=== PATIENT | female | born 1995 | race African-American/Black ===

== ENCOUNTER 2016-12-03 23:34 | Emergency (ER) | payer BC ==
[~2016-12-03] VITALS: Ht 162.6 cm; Wt 69.0 kg
[~2016-12-03 23:34] MED LIST: MACROBID 100 M100 M1 PO
[2016-12-04 01:35] VITALS: BP 110/74
== END 2016-12-04 01:37 | disposition home or self-care (01) ==
LOC: ER 23:34
DX: S05.10XA Contusion of eyeball and orbital tissues, unspecified eye, initial encounter (principal); S60.222A Contusion of left hand, initial encounter; S60.221A Contusion of right hand, initial encounter; S09.90XA Unspecified injury of head, initial encounter; Y04.2XXA Assault by strike against or bumped into by another person, initial encounter; Y93.39 Activity, other involving climbing, rappelling and jumping off; Y92.89 Other specified places as the place of occurrence of the external cause; Y99.9 Unspecified external cause status

== ENCOUNTER 2018-01-15 21:08 | Emergency (ER) | payer OTHER ==
[~2018-01-15] VITALS: Ht 162.6 cm; Wt 68.0 kg
[2018-01-15 22:13] LABS: ABSOLUTE NEUTROPHILS 2.6 thou/uL (1.4-8.2); BASOPHILS 0.4 % (0.0-2.0); EOSINOPHILS 2.5 % (0.0-3.0); HEMATOCRIT 39.5 % (37.0-47.0); HEMOGLOBIN 13.6 gm/dL (12.0-15.0); LYMPHOCYTES 42.1 % (24.0-44.0); MCH 33.2 pg (26.0-34.0); MCHC 34.3 g/dL (28.0-37.0); MCV 96.8 fL (80.0-100.0); MONOCYTES 7.4 % (1.0-8.0); PLATELET COUNT 156 thou/uL (150-400); POLYS 47.6 % (36.0-66.0); RBC 4.09 mil/uL (4.20-5.00); RDW 12.9 % (10.5-14.5); WBC 5.4 thou/uL (4.0-11.0)
[2018-01-15 22:16] LABS: URINE BILIRUBIN NEGATIVE (Negative); URINE BLOOD 2+ (Negative); URINE CLARITY SL CLOUDY; URINE COLOR YELLOW; URINE GLUCOSE-RANDOM* NEGATIVE (Negative); URINE KETONES NEGATIVE (Negative); URINE LEUKOCYTES 2+ (Negative); URINE NITRITE POSITIVE (Negative); URINE PROTEIN (DIPSTICK) TRACE (Negative); URINE SPECIFIC GRAVITY 1.025 (1.005-1.035)
[2018-01-15 22:20] LABS: CALCIUM 8.5 mg/dL (8.5-10.1); CREATININE 1.2 mg/dL (0.6-1.0); POTASSIUM 3.4 mmol/L (3.5-5.1)
[2018-01-15 22:25] LABS: BACTERIA >30 Many /HPF (None Seen); CASTS None Seen /LPF (None Seen); CRYSTALS None Seen /LPF (None Seen); SQUAMOUS 0-3 Few /LPF (0-3); URINE RBC 3-10 Few /HPF (0-2)
[2018-01-15] MEDS ORDERED: NORCO 5-325 TA1 EACH PO (23:00)
[2018-01-15] MEDS ORDERED: MACROBID 100 M100 M1 PO (23:00)
[2018-01-15 23:56] VITALS: BP 125/70
== END 2018-01-15 23:58 | disposition home or self-care (01) ==
LOC: ER 21:08
PROVIDERS: Emergency Medicine
DX: N20.0 Calculus of kidney (principal); N39.0 Urinary tract infection, site not specified; Z87.442 Personal history of urinary calculi

== ENCOUNTER 2018-03-26 18:29 | Emergency (ER) | payer OTHER ==
[~2018-03-26] VITALS: Ht 162.6 cm; Wt 70.3 kg
[~2018-03-26 18:29] MED LIST changes: +NORCO 5-325 TA1 EACH PO
[2018-03-26 18:58] LABS: URINE BILIRUBIN NEGATIVE (Negative); URINE BLOOD 1+ (Negative); URINE CLARITY CLEAR; URINE COLOR YELLOW; URINE GLUCOSE-RANDOM* NEGATIVE (Negative); URINE KETONES NEGATIVE (Negative); URINE NITRITE-REFLEX NEGATIVE (Negative); URINE PROTEIN (DIPSTICK) NEGATIVE (Negative); URINE SPECIFIC GRAVITY >= 1.030 (1.005-1.035)
[2018-03-26 19:00] LABS: URINE LEUKOCYTES-REFLEX 1+ (Negative)
[2018-03-26 19:13] LABS: BACTERIA-REFLEX 1-9 Few /HPF (None Seen); CASTS None Seen /LPF (None Seen); CRYSTALS None Seen /LPF (None Seen); MUCUS >6 Heavy strn/LPF (None Seen); SQUAMOUS >10 Many /LPF (0-3); URINE RBC 3-10 Few /HPF (0-2); URINE WBC-REFLEX >25 Many /HPF (0-5); WBC CLUMPS Few (None Seen)
[2018-03-26] MEDS ORDERED: DIFLUCAN150 MG PO (19:31)
[2018-03-26 19:54] VITALS: BP 100/57
[2018-03-27 14:12] LABS: NEISSERIA GONORRHEA-PCR Positive (Negative)
== END 2018-03-26 19:55 | disposition home or self-care (01) ==
LOC: ER 18:29
PROVIDERS: Physician Assistant
DX: A56.02 Chlamydial vulvovaginitis (principal); B37.3 Candidiasis of vulva and vagina; Z87.442 Personal history of urinary calculi

== ENCOUNTER 2018-09-19 19:10 | Emergency (ER) | payer OTHER ==
[~2018-09-19] VITALS: Ht 162.6 cm; Wt 72.6 kg
[~2018-09-19 19:10] MED LIST changes: +DIFLUCAN150 MG PO
[2018-09-19 19:15] VITALS: BP 111/68
[2018-09-19 19:32] LABS: URINE CLARITY CLEAR; URINE COLOR YELLOW; URINE SPECIFIC GRAVITY 1.025 (1.005-1.035)
[2018-09-19 19:33] LABS: URINE BILIRUBIN NEGATIVE (Negative); URINE BLOOD 3+ (Negative); URINE GLUCOSE-RANDOM* NEGATIVE (Negative); URINE KETONES NEGATIVE (Negative); URINE LEUKOCYTES-REFLEX NEGATIVE (Negative); URINE NITRITE-REFLEX NEGATIVE (Negative); URINE PROTEIN (DIPSTICK) NEGATIVE (Negative); URINE UROBILINOGEN 0.2 E.U./dl (0.2-1.0)
[2018-09-19 19:40] LABS: BACTERIA-REFLEX None Seen /HPF (None Seen); CASTS None Seen /LPF (None Seen); CRYSTALS None Seen /LPF (None Seen); SQUAMOUS 4-10 Moderate /LPF (0-3); URINE RBC 3-10 Few /HPF (0-2); URINE WBC-REFLEX 0-5 Rare /HPF (0-5)
[2018-09-19 19:47] LABS: ABSOLUTE NEUTROPHILS 2.2 thou/uL (1.4-8.2); BASOPHILS 0.9 % (0.0-2.0); EOSINOPHILS 1.9 % (0.0-3.0); HEMATOCRIT 43.8 % (37.0-47.0); HEMOGLOBIN 14.9 gm/dL (12.0-15.0); LYMPHOCYTES 40.2 % (24.0-44.0); MCH 32.7 pg (26.0-34.0); MCHC 33.9 g/dL (28.0-37.0); MCV 96.5 fL (80.0-100.0); MONOCYTES 7.6 % (1.0-8.0); PLATELET COUNT 157 thou/uL (150-400); POLYS 49.4 % (36.0-66.0); RBC 4.54 mil/uL (4.20-5.00); RDW 13.1 % (10.5-14.5); WBC 4.5 thou/uL (4.0-11.0)
== END 2018-09-19 20:03 | disposition home or self-care (01) ==
LOC: ER 19:10
PROVIDERS: Student in an Organized Health Care Education/Training Program
DX: N93.8 Other specified abnormal uterine and vaginal bleeding (principal)

== ENCOUNTER 2018-12-08 08:57 | Emergency (ER) | payer OTHER ==
[~2018-12-08] VITALS: Ht 162.6 cm; Wt 74.8 kg
[2018-12-08] MEDS ORDERED: METFORMIN HCL500 MG PO (09:09)
[2018-12-08] MEDS ORDERED: ULTRAM 50MG TAB50 MG PO (11:49)
[2018-12-08 12:28] VITALS: BP 124/76
== END 2018-12-08 12:29 | disposition home or self-care (01) ==
LOC: ER 08:57
DX: S32.2XXA Fracture of coccyx, initial encounter for closed fracture (principal); Z87.442 Personal history of urinary calculi; W10.9XXA Fall (on) (from) unspecified stairs and steps, initial encounter; Y92.89 Other specified places as the place of occurrence of the external cause; Y93.89 Activity, other specified; Y99.8 Other external cause status

== ENCOUNTER 2019-04-28 14:05 | Emergency (ER) | payer OTHER ==
[~2019-04-28] VITALS: Ht 167.6 cm; Wt 63.5 kg
[~2019-04-28 14:05] MED LIST changes: +METFORMIN HCL500 MG PO; +ULTRAM 50MG TAB50 MG PO
[2019-04-28] MEDS ORDERED: PREDNISONE 20 M20 MG PO (15:27)
[2019-04-28] MEDS ORDERED: MOBIC15 MG PO (15:27)
[2019-04-28] MEDS ORDERED: CEPACOL SORE T1 EAC8 PO (15:27)
[2019-04-28 15:46] VITALS: BP 106/52
== END 2019-04-28 15:47 | disposition home or self-care (01) ==
LOC: ER 14:05
DX: J02.9 Acute pharyngitis, unspecified (principal); Z87.442 Personal history of urinary calculi; Z79.84 Long term (current) use of oral hypoglycemic drugs

== ENCOUNTER 2021-09-25 15:17 | Inpatient (IN) | payer BC, OTHER ==
[~2021-09-25] VITALS: Ht 162.6 cm; Wt 70.3 kg
[~2021-09-25 15:17] MED LIST changes: +CEPACOL SORE T1 EAC8 PO; +MOBIC15 MG PO; +PREDNISONE 20 M20 MG PO
[2021-09-25 15:25] VITALS: BP 104/65
[2021-09-25 15:44] LABS: URINE BILIRUBIN NEGATIVE (Negative); URINE BLOOD 2+ (Negative); URINE CLARITY CLEAR; URINE COLOR YELLOW; URINE GLUCOSE-RANDOM* NEGATIVE (Negative); URINE KETONES NEGATIVE (Negative); URINE LEUKOCYTES-REFLEX NEGATIVE (Negative); URINE NITRITE-REFLEX NEGATIVE (Negative); URINE PROTEIN (DIPSTICK) NEGATIVE (Negative); URINE SPECIFIC GRAVITY >= 1.030 (1.005-1.035); URINE UROBILINOGEN 0.2 E.U./dl (0.2-1.0)
[2021-09-25 15:53] LABS: CASTS None Seen /LPF (None Seen); SQUAMOUS 4-10 Moderate /LPF (0-3); URINE RBC 3-10 Few /HPF (NONE SEEN); URINE WBC-REFLEX 0-5 Rare /HPF (0-5)
[2021-09-25 15:54] LABS: CRYSTALS None Seen /LPF (None Seen)
[2021-09-25 17:25] LABS: HEMATOCRIT 41.8 % (37.0-47.0); HEMOGLOBIN 14.3 gm/dL (12.0-15.0); MCH 34.1 pg (26.0-34.0); MCHC 34.2 g/dL (28.0-37.0); MCV 99.8 fL (80.0-100.0); RBC 4.19 mil/uL (4.20-5.00); RDW 13.7 % (10.5-14.5); WBC 4.9 thou/uL (4.0-11.0)
[2021-09-25 17:50] LABS: CALCIUM 9.1 mg/dL (8.5-10.1); POTASSIUM 4.7 mmol/L (3.5-5.1)
[2021-09-25 17:51] LABS: ALBUMIN 3.2 g/dL (3.4-5.0); TOTAL PROTEIN 7.5 g/dL (6.4-8.2)
[2021-09-25 20:45] VITALS: BP 112/84
[2021-09-25 20:54] VITALS: BP 104/64
--- NOTE | 2021-09-25 23:10 | NUR ---
Call placed to Dr. Norris for orders (see cpoe). Admission assessment and history is completed. Pt. offers no complaints of pain.
--- NOTE | 2021-09-26 05:51 | NUR ---
Pt. admitted to the unit from the emergency room accompanied by staff. She is alert and oriented and offers no complaints. Pt. oriented to staff and room.
[2021-09-26 08:00] VITALS: BP 104/66
[2021-09-26 12:23] VITALS: BP 102/68
[2021-09-26 21:24] VITALS: BP 107/72
--- NOTE | 2021-09-27 03:41 | NUR ---
Pt. rested quietly during the night when checked on during frequent rounds. Took po tylenol for c/o abdominal pain (see emar) with some relief noted. Up ad funmilayo in room.
[2021-09-27 08:12] VITALS: BP 103/89
[2021-09-27] MEDS ORDERED: CEFDINIR300 MG PO (10:14)
[2021-09-27] MEDS ORDERED: METRONIDAZOLE500 M4 PO (10:15)
[2021-09-27] MEDS ORDERED: TRAMADOL 50 MG50 MG PO (10:15)
[2021-09-27] MEDS ORDERED: ACETAMINOPHEN325 M1 PO (10:15)
[2021-09-27 12:24] VITALS: BP 103/89
== END 2021-09-27 14:27 | disposition home or self-care (01) | DRG 395 ==
LOC: ER 15:17 → EROBS 18:31 → 4S 18:31
PROVIDERS: Emergency Medicine; Student in an Organized Health Care Education/Training Program; ADMIT Surgery; ATTEND Surgery
DX: K35.80 Unspecified acute appendicitis (principal); F12.90 Cannabis use, unspecified, uncomplicated; N94.10 Unspecified dyspareunia; N76.0 Acute vaginitis; Z20.822 Contact with and (suspected) exposure to COVID-19; Z87.442 Personal history of urinary calculi; Z28.21 Immunization not carried out because of patient refusal
CPT/HCPCS: 10100; 10102